=== PATIENT | female | born 1990 | race Caucasian/White ===

== ENCOUNTER 2018-03-01 18:57 | Inpatient (IN) | END 2018-03-05 18:00 | disposition home or self-care (01) | DRG 871 ==

== ENCOUNTER 2018-03-28 17:25 | Emergency (ER) | END 2018-03-28 23:28 | disposition home or self-care (01) ==

== ENCOUNTER 2018-08-25 10:35 | Emergency (ER) | payer OTHER ==
[~2018-08-25] VITALS: Ht 157.5 cm; Wt 116.2 kg
[~2018-08-25 10:35] MED LIST: CALC-72 PO; CLOT30CR35 TOP; Calcium Carbonate PO; HYDR-3601 PO
[2018-08-25 10:36] VITALS: Ht 157.5 cm; Wt 116.2 kg
--- NOTE | 2018-08-25 11:02 | ERD ---
ER Documentation Chief Complaint Chief Complaint lower back pain x 1 day , no trauma HPI 27-year-old female, otherwise healthy, who presents to the ER today with a 1 day history of lower back pain described as sharp, 6/10, constant, non-radiating, worse with moving. Patient reports that she took ibuprofen morning with minimal relief of her symptoms. Patient denies any recent trauma or falls. Otherwise denies any fevers, chills, weakness, numbness, bowel or bladder incontinence. ROS All systems reviewed and are negative except as per history of present illness. Medications Home Meds Active Scripts Hydrocodone/Acetaminophen ([place] 5-325 Tablet) 1 Each Tablet, 1 TAB PO QHS PRN for PAIN, #7 TAB Prov:CHANA CARRILLO MD 08/25/18 Ibuprofen* (Motrin*) 600 Mg Tab, 600 MG PO Q8, #15 TAB Prov:CHANA CARRILLO MD 08/25/18 Baclofen* (Baclofen*) 10 Mg Tablet, 10 MG PO QHS PRN for MUSCLE SPASMS for 7 Days, #7 TAB Prov:CHANA CARRILLO MD 08/25/18 Hydrocodone Bit-Acetaminophen (Hydrocodone Bit-APAP) 5-325MG Tablet, 1 TAB PO Q6H PRN for SEVERE PAIN LEVEL 7-10, #21 TAB Prov:KESHAV SOL 03/05/18 Calcium Carbonate-Vitamin D3 (Calcium 500 + Vit D 200 Caplet) 1 Each Tablet, 1 TAB PO BID for 30 Days, #60 TAB Prov:KESHAV SOL 03/05/18 Clotrimazole* (Lotrimin*) 1%-30 Gm Cream..g., 1 APPLIC TOP BID for 14 Days, #60 GM Prov:KESHAV SOL 03/05/18 [Calcium Carbonate] 1.25 GM TAB No Conflict Check, 1.25 GM PO BID for 30 Days, #60 TAB Prov:KESHAV SOL 03/05/18 Allergies Allergies: Coded Allergies: No Known Allergies (Verified Allergy, Unknown, 03/04/18) morphine (Verified Adverse Reaction, Intermediate, VOMITING, 03/02/18) PMhx/Soc Medical and Surgical Hx: pt denies Surgical Hx History of Surgery: No Anesthesia Reaction: No Hx Neurological Disorder: No Hx Respiratory Disorders: No Hx Cardiac Disorders: No Hx Psychiatric Problems: No Hx Miscellaneous Medical Probl: Yes (HSV meningitis, pseudomonal UTI, tiffanie intertrigo, septic shock) Hx Alcohol Use: No Hx Substance Use: No Hx Tobacco Use: No Smoking Status: Never smoker FmHx Family History: No diabetes, No coronary disease Physical Exam Vitals Vital Signs Date Temp Pulse Resp B/P (MAP) Pulse Ox O2 O2 Flow FiO2 Time Delivery Rate 08/25/18 98.1 74 18 120/65 99 10:36 (83) Physical Exam Const: No acute distress Head: Atraumatic Eyes: Normal Conjunctiva ENT: Normal External Ears, Nose and Mouth. Neck: Full range of motion. No meningismus. Resp: Clear to auscultation bilaterally Cardio: Regular rate and rhythm, no murmurs Abd: Soft, non tender, non distended. Normal bowel sounds Skin: No petechiae or rashes Back: No midline or flank tenderness Ext: No cyanosis, or edema Neur: Awake and alert Psych: Normal Mood and Affect Results 24 hrs Laboratory Tests Test 08/25/18 11:19 08/25/18 11:20 Bedside Urine pH (LAB) 6.0 Bedside Urine Protein (LAB) Negative Bedside Urine Glucose (UA) Negative Bedside Urine Ketones (LAB) Negative Bedside Urine Blood Negative Bedside Urine Nitrite (LAB) Negative Bedside Urine Leukocyte Esterase (L Negative POC Beta HCG, Qualitative NEGATIVE Procedures/MDM Differential diagnosis include but not limited to: lumbar sprain/strain, sc iatica, herniated disk, UTI less likely pyelo, kidney stone. Neurovascular exam grossly intact. no clinical findings suggestive of acute infectious process, no acute deformity, no edema, no rashes. Physical examination and clinical presentation consistent most likely with acute on chronic back pain with sciatica. Results and clinical impression discussed with the patient who agrees with management. The patient is stable to be treated outpatient and will be discharged home with recommendations and close monitoring The patient was instructed to follow up with the primary care provider in the next 48h. If symptoms persist, worsen or new symptoms develop, then patient should return to the ED immediately. Instructions explained and given to patient with acknowledgment and demonstrated understanding. Disclaimer: Inadvertent spelling and grammatical errors are likely due to EHR/dictation software use and do not reflect on the overall quality of patient care. Also, please note that the electronic time recorded on this note does not necessarily reflect the actual time of the patient encounter. Departure Diagnosis: Primary Impression: Lumbar back sprain Condition: Stable Additional Instructions: Differential diagnosis include but not limited to: lumbar sprain/strain, sciatica, herniated disk, UTI less likely pyelo, kidney stone. Neurovascular exam grossly intact. no clinical findings suggestive of acute infectious process, no acute deformity, no edema, no rashes. Physical examination and clinical presentation consistent most likely with acute on chronic back pain with sciatica. Results and clinical impression discussed with the patient who agrees with management. The patient is stable to be treated outpatient and will be discharged home with recommendations and close monitoring The patient was instructed to follow up with the primary care provider in the next 48h. If symptoms persist, worsen or new symptoms develop, then patient should return to the ED immediately. Instructions explained and given to patient with acknowledgment and demonstrated understanding. Disclaimer: Inadvertent spelling and grammatical errors are likely due to EHR/dictation software use and do not reflect on the overall quality of patient care. Also, please note that the electronic time recorded on this note does not necessarily reflect the actual time of the patient encounter. CHANA CARRILLO MD Aug 25, 2018 11:01
[2018-08-25] MEDS ORDERED: HYDR-4011 PO (13:27)
[2018-08-25] MEDS ORDERED: IBUP-1542 PO (13:27)
[2018-08-25] MEDS ORDERED: BACL10TA PO (13:27)
[2018-08-25 13:51] VITALS: BP 130/78; PULSE 78; RESP 16
== END 2018-08-25 14:02 | disposition home or self-care (01) ==
LOC: FTE 10:35
DX: S33.5XXA Sprain of ligaments of lumbar spine, initial encounter (principal); X58.XXXA Exposure to other specified factors, initial encounter; Y92.9 Unspecified place or not applicable
CPT/HCPCS: 72100; 81003; 81025; Z7502

== ENCOUNTER 2018-09-02 16:06 | Emergency (ER) | payer OTHER ==
[~2018-09-02] VITALS: Wt 115.5 kg
[~2018-09-02 16:06] MED LIST changes: +BACL10TA PO; +HYDR-4011 PO; +IBUP-1542 PO
[2018-09-02] MEDS ORDERED: ACETAMINOPHEN 500 MG TAB PO STA (19:12)
[2018-09-02] MEDS ORDERED: ACET325T33 PO (19:35)
[2018-09-02] MEDS ORDERED: PSEU120T12 PO (19:35)
[2018-09-02] MEDS ORDERED: SODI30SP2 NS (19:35)
[2018-09-02] MEDS ORDERED: CETI10CA PO (19:35)
[2018-09-02] MEDS ORDERED: ONDA8TAB14 PO (19:35)
[2018-09-02] MEDS ORDERED: HYDR28OI2 TP (19:37)
[2018-09-02 22:47] VITALS: BP 118/71; PULSE 99; RESP 16
--- NOTE | 2018-09-02 23:32 | ERD ---
ER Documentation Chief Complaint Chief Complaint VOMITING X YESTERDAY; BILATERAL EAR PAIN, HEADACHE HPI 27-year-old female presents to the ED complaining of fever, congestion, sore throat pain and headache since yesterday. Patient states that she has is coughing up a lot of phlegm. She denies vomiting. Has not taken medications for this ROS All systems reviewed and are negative except as per history of present illness. Medications Home Meds Active Scripts Hydrocortisone Acetate (Hydrocortisone) 28 Gm Oint...g., 1 GM TP BID for 7 Days Prov:BRAD BOYLE PA-C 09/02/18 Pseudoephedrine Hcl (Sudafed 12 Hour) 120 Mg Tablet.sa, 120 MG PO BID, #10 Prov:BRAD BOYLE PA-C 09/02/18 Sodium Chloride (Saline Nasal [place]) 30 Ml [place], 30 ML NS BID, #1 SPRAY Prov:BRAD BOYLE PA-C 09/02/18 Cetirizine Hcl* (Zyrtec*) 10 Mg Capsule, 10 MG PO DAILY, #30 TAB.CHEW Prov:BRAD BOYLE PA-C 09/02/18 Ondansetron (Ondansetron Odt) 8 Mg Tab.rapdis, 8 MG PO Q8 PRN for NAUSEA AND/OR VOMITING, #20 TAB Prov:BRAD BOYLE PA-C 09/02/18 Acetaminophen* (Tylenol*) 325 Mg Tablet, 2 TAB PO Q6 PRN for PAIN AND OR ELEVATED TEMP, #30 TAB Prov:BRAD BOYLE PA-C 09/02/18 Hydrocodone/Acetaminophen ([place] 5-325 Tablet) 1 Each Tablet, 1 TAB PO QHS PRN for PAIN, #7 TAB Prov:CHANA CARRILLO MD 08/25/18 Ibuprofen* (Motrin*) 600 Mg Tab, 600 MG PO Q8, #15 TAB Prov:CHANA CARRILLO MD 08/25/18 Baclofen* (Baclofen*) 10 Mg Tablet, 10 MG PO QHS PRN for MUSCLE SPASMS for 7 Days, #7 TAB Prov:CHANA CARRILLO MD 2/17/19 Hydrocodone Bit-Acetaminophen (Hydrocodone Bit-APAP) 5-325MG Tablet, 1 TAB PO Q6H PRN for SEVERE PAIN LEVEL 7-10, #21 TAB Prov:KESHAV SOL. 03/05/18 Calcium Carbonate-Vitamin D3 (Calcium 500 + Vit D 200 Caplet) 1 Each Tablet, 1 TAB PO BID for 30 Days, #60 TAB Prov:KESHAV SOL. 03/05/18 Clotrimazole* (Lotrimin*) 1%-30 Gm Cream..g., 1 APPLIC TOP BID for 14 Days, #60 GM Prov:KESHAV SOL. 03/05/18 [Calcium Carbonate] 1.25 GM TAB No Conflict Check, 1.25 GM PO BID for 30 Days, #60 TAB Prov:KESHAV SOL. 03/05/18 Allergies Allergies: Coded Allergies: No Known Allergies (Verified Allergy, Unknown, 03/04/18) morphine (Verified Adverse Reaction, Intermediate, VOMITING, 03/02/18) PMhx/Soc Medical and Surgical Hx: pt denies Surgical Hx History of Surgery: No Anesthesia Reaction: No Hx Neurological Disorder: No Hx Respiratory Disorders: No Hx Cardiac Disorders: No Hx Psychiatric Problems: No Hx Miscellaneous Medical Probl: Yes (HSV meningitis, pseudomonal UTI, tiffanie intertrigo, septic shock) Hx Alcohol Use: No Hx Substance Use: No Hx Tobacco Use: No Smoking Status: Never smoker Physical Exam Vitals Vital Signs Date Temp Pulse Resp B/P (MAP) Pulse Ox O2 O2 Flow FiO2 Time Delivery Rate 09/02/18 98.9 99 16 118/71 99 Room Air 22:47 (87) 09/02/18 100.1 83 20 118/64 95 17:19 (82) Physical Exam Const: No acute distress Head: Atraumatic Eyes: Normal Conjunctiva ENT: Normal External Ears, Nose and Mouth. Neck: Full range of motion. No meningismus. Resp: Clear to auscultation bilaterally Cardio: Regular rate and rhythm, no murmurs Abd: Soft, non tender, non distended. Normal bowel sounds Skin: S papules on dorsal hands Back: No midline or flank tenderness Ext: No cyanosis, or edema Neur: Awake and alert Psych: Normal Mood and Affect Results 24 hrs Laboratory Tests Test 09/02/18 20:26 Monoscreen Negative Current Medications Medications Dose Sig/Ana Start Time Status Last (Trade) Ordered Route PRN Stop Time Admin Dose Reason Admin 1,000 mg ONCE STAT 09/02/18 DC 09/02/18 Acetaminophen PO 19:12 19:27 (Tylenol 09/02/18 19:13 Tab) Procedures/MDM 27-year-old female presents to the ER with sore throat, I presuming strep pharyngitis due to examination low suspicion for retropharyngeal abscess, peritonsillar abscess, or jp's angina due to physical examination. Patient also complains of a rash on her dorsal hands that are very itchy. She was given prescription for hydrocortisone cream and to follow-up with her PCP. : Patient is in stable condition for discharge. Prescription for amoxicillin 500mg BID Zyrtec and Sudafed was given to patient, discussed to return to the ED if not improving as expected or follow-up with a primary care physician. Patient understood and agreed with this plan. Departure Diagnosis: Primary Impression: Sore throat Condition: Stable Patient Instructions: Dermatitis, Non-Specific, Pharyngitis, Strep (Presumed), Viral Syndrome (Adult), Uri, Viral, No Abx (Adult) Additional Instructions: FOLLOW UP WITH YOUR PRIMARY CARE PHYSICIAN TOMORROW.Return to this facility if you are not improving as expected. Take all medicines as directed. Return to this facility if you are not improving as expected. BRAD BOYLE PA-C Sep 02, 2018 23:32
== END 2018-09-02 22:48 | disposition home or self-care (01) ==
LOC: FTE 16:06
DX: J02.9 Acute pharyngitis, unspecified (principal)
CPT/HCPCS: 86308; 87880; Z7610; 36415; 99283

== ENCOUNTER 2019-03-07 22:17 | Emergency (ER) | payer OTHER ==
[~2019-03-07] VITALS: Ht 157.5 cm; Wt 118.1 kg
[~2019-03-07 22:17] MED LIST changes: +ACET325T33 PO; +BACI28.34 TOP; +CETI10CA PO; +HYDR28OI2 TP; +ONDA8TAB14 PO; +PSEU120T12 PO; +SODI30SP2 NS
[2019-03-07 22:20] VITALS: Ht 157.5 cm; Wt 118.1 kg
[2019-03-08 00:46] VITALS: BP 118/67; PULSE 78; RESP 18
== END 2019-03-08 00:46 | disposition home or self-care (01) ==
LOC: FTE 22:17
DX: S61.213A Laceration without foreign body of left middle finger without damage to nail, initial encounter (principal); W26.0XXA Contact with knife, initial encounter; Y92.89 Other specified places as the place of occurrence of the external cause
CPT/HCPCS: 12001; Z7502; Z7610

== ENCOUNTER 2019-03-14 19:36 | Emergency (ER) | payer OTHER ==
[~2019-03-14] VITALS: Ht 157.5 cm; Wt 119.6 kg
[2019-03-14 19:42] VITALS: BP 139/76; PULSE 76; RESP 21; Ht 157.5 cm; Wt 119.6 kg
== END 2019-03-14 20:14 | disposition home or self-care (01) ==
LOC: FTE 19:36
DX: Z48.02 Encounter for removal of sutures (principal)
CPT/HCPCS: 99281